=== PATIENT | male | born 1985 | race Caucasian/White ===

== ENCOUNTER 2017-01-06 08:42 | Emergency (ER) | payer OTHER ==
[~2017-01-06] VITALS: Ht 180.3 cm; Wt 91.3 kg
[2017-01-06 10:58] VITALS: BP 146/70
== END 2017-01-06 10:58 | disposition home or self-care (01) ==
LOC: ED 08:42
DX: J03.90 Acute tonsillitis, unspecified (principal); F17.200 Nicotine dependence, unspecified, uncomplicated; Z79.899 Other long term (current) drug therapy
CPT/HCPCS: 99406; J0696; J7512

== ENCOUNTER 2017-03-27 21:44 | Emergency (ER) | payer OTHER ==
[2017-03-28 00:47] VITALS: BP 122/74
== END 2017-03-28 00:51 | disposition home or self-care (01) ==
LOC: ED 21:44
DX: L02.211 Cutaneous abscess of abdominal wall (principal)
CPT/HCPCS: J0696; J1885; J2001

== ENCOUNTER 2017-03-30 17:03 | Emergency (ER) | payer OTHER ==
[~2017-03-30] VITALS: Ht 182.9 cm; Wt 95.5 kg
[2017-03-30 17:25] VITALS: BP 143/82
== END 2017-03-30 18:29 | disposition home or self-care (01) ==
LOC: ED 17:03
DX: Z48.00 Encounter for change or removal of nonsurgical wound dressing (principal)